=== PATIENT | male | born 1940 | race Caucasian/White ===

== ENCOUNTER 2018-01-29 08:55 | Day surgery (SDC) | payer OTHER, MEDICAID ==
[~2018-01-29 08:55] MED LIST: LIDOCAINE 1% MDV 20ML VIAL SQ
[2018-01-29] MEDS: LIDOCAINE 3.5 % 1ML OPHTH TOPICAL GEL OU ×2 (09:25→09:46)
[2018-01-29] MEDS ORDERED: fentaNYL 100 MCG/2 ML INJECTION (J3010) As Ordered (09:39)
[2018-01-29] MEDS ORDERED: MIDAZOLAM INJ 2 MG/2 ML VIAL (J2250) As Ordered (09:39)
[2018-01-29] MEDS ORDERED: LIDOCAINE 2% INJ 100 MG/5 ML SDV (FOR ANES.) As Ordered (09:39)
[2018-01-29] MEDS ORDERED: PROPOFOL 200 MG/20 ML VIAL As Ordered (09:39)
[2018-01-29] MEDS: ERYTHROMYCIN OPHTH OINT As Ordered (10:04)
[2018-01-29] MEDS: POVIDONE-IODINE 5% OPHTH PREP SOL 30ML As Ordered (10:31)
[2018-01-29] MEDS: LIDOCAINE 2% W/EPIN INJ 20ML **PRES FREE As Ordered (10:40)
[2018-01-29] MEDS: TETRACAINE 0.5% OPHTH SOLN 4ML As Ordered (11:06)
== END 2018-01-29 12:00 | disposition home or self-care (01) ==
LOC: M SDC 08:55
DX: H02.831 Dermatochalasis of right upper eyelid (principal); H02.834 Dermatochalasis of left upper eyelid; K44.9 Diaphragmatic hernia without obstruction or gangrene; G47.30 Sleep apnea, unspecified; Z79.899 Other long term (current) drug therapy; Z88.2 Allergy status to sulfonamides; Z88.5 Allergy status to narcotic agent
CPT/HCPCS: 15823